=== PATIENT | female | born 1975 | race Caucasian/White ===

== ENCOUNTER 2021-11-10 10:44 | Outpatient (CLI) | payer BC | END 2021-11-10 10:45 | disposition home or self-care (01) | LOC: BICMAMMO 10:44 | PROVIDERS: ATTEND Family Medicine | DX: Z12.31 Encounter for screening mammogram for malignant neoplasm of breast (principal) | CPT/HCPCS: 77063; 77067 ==

== ENCOUNTER 2024-12-20 11:38 | Outpatient (CLI) | payer BC | END 2024-12-20 11:39 | disposition home or self-care (01) | LOC: BICMAMMO 11:38 | PROVIDERS: ATTEND Nurse Practitioner Family | DX: Z12.31 Encounter for screening mammogram for malignant neoplasm of breast (principal); Z80.3 Family history of malignant neoplasm of breast | CPT/HCPCS: 77063; 77067 ==